=== PATIENT | female | born 1945 | race Caucasian/White ===

== ENCOUNTER 2018-06-28 06:23 | Day surgery (SDC) | payer OTHER ==
[~2018-06-28] VITALS: Ht 157.5 cm; Wt 74.8 kg
[~2018-06-28 06:23] MED LIST: ASPI-1052 PO; LOSA100T1 PO
[2018-06-28] MEDS ORDERED: fentaNYL 0.05 MG/ML VIAL ONE (08:43)
[2018-06-28] MEDS ORDERED: MIDAZOLAM 2 MG/2 ML VIAL ONE (08:43)
[2018-06-28] MEDS ORDERED: MIDAZOLAM 2 MG/2 ML VIAL IVP SCH (09:45)
[2018-06-28] MEDS ORDERED: PRAS10TA8 PO (10:07)
[2018-06-28] MEDS ORDERED: PROP20TA28 PO (10:07)
[2018-06-28] MEDS ORDERED: CHLO25TA33 PO (10:07)
[2018-06-28] MEDS ORDERED: PROP1VIA IV (10:07)
[2018-06-28] MEDS ORDERED: ISOS30TA23 PO (10:08)
[2018-06-28] MEDS ORDERED: HYDR100T79 PO (10:08)
[2018-06-28] MEDS ORDERED: LEVO0.155 PO (10:08)
[2018-06-28] MEDS ORDERED: VITD1000 PO (10:08)
== END 2018-06-28 10:50 | disposition home or self-care (01) ==
LOC: MDS 06:23 → MMU 06:25 → MDS 10:50
PROVIDERS: ATTEND Internal Medicine Gastroenterology
DX: K25.9 Gastric ulcer, unspecified as acute or chronic, without hemorrhage or perforation (principal); K31.9 Disease of stomach and duodenum, unspecified; I85.10 Secondary esophageal varices without bleeding; K74.60 Unspecified cirrhosis of liver; I10 Essential (primary) hypertension; E03.9 Hypothyroidism, unspecified; Z95.818 Presence of other cardiac implants and grafts; E66.9 Obesity, unspecified; Z68.30 Body mass index [BMI] 30.0-30.9, adult; Z79.82 Long term (current) use of aspirin; Z79.899 Other long term (current) drug therapy
CPT/HCPCS: 36415; 43239; 86677; J2250; J3010

== ENCOUNTER 2020-08-07 05:55 | Day surgery (SDC) | payer OTHER, SELFPAY ==
[~2020-08-07] VITALS: Ht 157.5 cm; Wt 75.3 kg
[~2020-08-07 05:55] MED LIST changes: +CHLO25TA33 PO; +HYDR100T79 PO; +ISOS30TA23 PO; +LEVO0.155 PO; -LOSA100T1 PO; +PRAS10TA8 PO; +PROP20TA28 PO; +VITD1000 PO
[2020-08-07] MEDS ORDERED: MIDAZOLAM 5 MG/5 ML VIAL ONE (07:44)
[2020-08-07] MEDS ORDERED: fentaNYL citrate 0.05 MG/ML VIAL ONE (07:44)
[2020-08-07] MEDS ORDERED: MIDAZOLAM 2 MG/2 ML VIAL IVP SCH (08:10)
== END 2020-08-07 08:25 | disposition home or self-care (01) ==
LOC: MFCC 05:55 → MDS 05:55
PROVIDERS: ATTEND Internal Medicine Gastroenterology
DX: R13.10 Dysphagia, unspecified (principal); K29.70 Gastritis, unspecified, without bleeding; K29.80 Duodenitis without bleeding; K22.2 Esophageal obstruction; K74.60 Unspecified cirrhosis of liver; Z79.899 Other long term (current) drug therapy; Z20.828 Contact with and (suspected) exposure to other viral communicable diseases
CPT/HCPCS: 36415; 43239; 86677; J2250; U0003; J3010